=== PATIENT | male | born 1945 | race Two or more races ===

== ENCOUNTER 2018-10-26 08:17 | Day surgery (SDC) | payer OTHER ==
[2018-10-25 08:47] VITALS: BMI 33.9
[~2018-10-26 08:17] MED LIST: ACETAMINOPHEN 325 MG TABLET (FP) PO PRN; CIPROFLOXACIN HCL 0.3% OPHTH 2.5ML BOTTLE OP SCH; KETOROLAC TROMETHAMINE 0.5% EYE DROP 1 DROP DROPS OP SCH; PHENYLEPHRINE 2.5% OPHTH SOLN 15 ML BOTTLE OP SCH; TROPICAMIDE 1% OPHTH SOLN 15 ML BOTTLE OP SCH
[2018-10-26] MEDS ORDERED: CIPROFLOXACIN HCL 0.3% OPHTH 2.5ML BOTTLE ONE (09:01)
[2018-10-26] MEDS ORDERED: KETOROLAC TROMETHAMINE 0.5% EYE DROP 1 DROP DROPS ONE (09:01)
[2018-10-26] MEDS ORDERED: TROPICAMIDE 0.5% OPHTHALMIC SOLN 15 ML BOTTLE ONE (09:01)
[2018-10-26] MEDS ORDERED: PHENYLEPHRINE HCL 10% OPHTHALMIC SOLN 5 ML BOTTLE OS ONE (09:10)
[2018-10-26] MEDS ORDERED: CIPROFLOXACIN HCL 0.3% OPHTH 2.5ML BOTTLE OS ONE ×2 (09:10→09:15)
[2018-10-26] MEDS ORDERED: TROPICAMIDE 0.5% OPHTHALMIC SOLN 15 ML BOTTLE OS ONE ×3 (09:10→09:20)
[2018-10-26] MEDS ORDERED: PHENYLEPHRINE 2.5% OPHTH SOLN 15 ML BOTTLE OS ONE ×2 (09:15→09:20)
[2018-10-26] MEDS ORDERED: KETOROLAC TROMETHAMINE 0.5% EYE DROP 1 DROP DROPS OS ONE ×2 (09:15→09:20)
[2018-10-26] MEDS ORDERED: CIPROFLOXACIN 0.3% EYE DROPS 5 ML BOTTLE OS ONE (09:20)
--- NOTE | 2018-10-26 09:55 | HP ---
History & Physical Update - History History: No Change - Physical Physical: No Change - Assessment Assessment: No Change - Plan Plan: No Change (Reviewed Dr. Amezquita's H and P from 08/08/18 no changes)
--- NOTE | 2018-10-26 09:59 | HP ---
- Patient Scheduled date of Surgery: 10/26/18 Scheduled Surgical Procedure: Phacoemulsification and cataract extraction with PCIOL Affected Eye: Left Chief Complaint (Indication for surgery): Decreased vision affecting ADLs - Ocular History Other Eye History: Other (HTN retinopathy) Eye Medications: prolensa 0/1, vigamox 0/3 Previous Eye Surgery: none - Medical History Illnesses: Hypertension, Hypercholesterolemia, Diabetes Current Medications: Ambulatory Orders Aspirin [ASA -] 81 mg PO DAILY 10/25/18 Atorvastatin Ca [Lipitor] 40 mg PO HS 10/26/18 Metoprolol Succinate [Toprol Xl] 25 mg PO DAILY 10/26/18 Naproxen/Esomeprazole Mag [Vimovo Dr 500-20 mg Tablet] 1 each PO HS 10/26/18 Sitagliptin Phosphate [Januvia] 100 mg PO DAILY 10/26/18 Telmisartan [Micardis] 80 mg PO DAILY 10/26/18 Allergies/Adverse Reactions: Allergies Allergy/AdvReac Type Severity Reaction Status Date / Time No Known Allergies Allergy Verified 09/04/14 11:28 Ocular Examination - Best Corrected Visual Acuity Distance: Right eye: 20/30 Distance: Left eye: 20/40 - External/Slit Lamp Examination Abnormalities: decreased TBUT, Dermatochalasis - Intraocular Pressure Intraocular Pressure - Right eye: 14 Intraocular Pressure-Left eye: 14 - Lens Lens: 2-3+ NS - Vitreous/Retina Vitreous/Retina: c:d 0.15 m/v/p wnl - Special Examination M - Right eye: -1.00-0.50 x 090 M - Left eye: -0.75 K - Right eye: 43.25/44 x 165 K - Left eye: 43.25/43.75 x 012 AL - Right eye: 24.18 AL - Left eye: 24.37 IOL bag: +19.0 AUOOTO IOL sulcus: +18.0 MN60AC IOL AC: +15.5 MTA 4UO - Impression Impression: Cataract Left Eye - Plan Plan: Phacoemulsification and cataract extraction - IOL Left eye Post-hospital care will be provided in office on: 10/27/18
[2018-10-26] MEDS ORDERED: TETRACAINE 0.5% OPHTH SOLN 2 ML BOTTLE OS ONE (10:09)
[2018-10-26] MEDS ORDERED: MIDAZOLAM HCL 2 MG/2 ML SINGLE DOSE VIAL ONE (10:09)
[2018-10-26] MEDS ORDERED: POVIDONE-IODINE 5% OPHTHALMIC PREP 30 ML SOLUTION OS ONE (10:10)
[2018-10-26] MEDS ORDERED: BSS (NA/CA/MG/K) BALANCED SALT SOLUTION OPHTH SOLN 15 ML BOTTLE OS ONE (10:19)
[2018-10-26] MEDS ORDERED: LIDOCAINE HCL 1% PRESERVATIVE FREE - 30ML VIAL IO ONE (10:19)
[2018-10-26] MEDS ORDERED: CHONDROITIN SU A/HYALUR SOD 1 KIT IO ONE (10:19)
[2018-10-26] MEDS ORDERED: EPINEPHrine/PF 1 MG/1 ML (1:1,000) AMPULE SQ ONE (10:24)
[2018-10-26] MEDS ORDERED: TOBRAMYCIN/DEXAMETHASONE OPHTH. OINTMENT 1 TUBE OS ONE (10:39)
--- NOTE | 2018-10-26 10:45 | OP ---
Ophthalmology Operative Note Pre-Operative Diagnosis: Cataract Affected Eye: Left Operation: Phacoemulsification and cataract extraction with PCIOL Findings: NS cataract left eye Post-Operative Diagnosis: Same as Pre-op Fermentation Scientist: None Anesthesiologist: Chelsea Pittman MD Anesthesia: Topical Specimens Removed: none Drains & Tubes with Location: <1 cc Operative Report Dictated: Yes
[2018-10-26 12:02] VITALS: BP 153/75; PULSE 88; TEMP 98.3
--- NOTE | 2018-11-11 07:45 | OP ---
DATE OF OPERATION: DATE OF DICTATION: 11/10/2018 PREOPERATIVE DIAGNOSIS: Nuclear sclerotic cataract, left eye. POSTOPERATIVE DIAGNOSIS: Nuclear sclerotic cataract, left eye. PROCEDURE: Phacoemulsification and cataract extraction with insertion of posterior chamber intraocular lens, left eye. SURGEON: Winsome Pizarro MD [employer]IOR [employer]ESSION[employer] CONSULTANT: None. ANESTHESIA: Topical. ANESTHESIOLOGIST: ISMAEL Iraheta OPERATIVE PROCEDURE: The patient received tetracaine eyedrops and then was gently sedated and prepped and draped in the usual sterile fashion so as to expose only the left eye. Ophthalmic Betadine was instilled into the inferior fornix and the lashes were taped out of the surgical field. An eyelid speculum was placed into the left eye. A paracentesis was made in inferior temporal clear cornea at the limbus. Nonpreserved lidocaine 1%, 0.5 mL, was injected into the anterior chamber. Viscoelastic material was instilled into the anterior chamber via the paracentesis. A 2.4-mm keratome was then used to create the main incision in temporal clear cornea at the limbus. A continuous curvilinear capsulorrhexis was performed using a cystotome and Utrata forceps. Hydrodissection of the lens cortex was performed using BSS on a cannula until the nucleus was noted to be freely rotating. The phacoemulsification tip was then inserted via the main wound and used to sculpt 2 perpendicular grooves into the lens nucleus. The nucleus was cracked into 4 quadrants and each quadrant was lifted out of the capsule into the iris plane and individually phacoemulsified. The remaining cortical material was then aspirated using irrigation and aspiration port. The capsular bag was inflated using Provisc and a preloaded AcrySof lens model AU00T0, power 19.0 diopters, was injected into the capsular bag and centered using a Sinskey hook. The residual viscoelastic material was removed from the anterior chamber using irrigation and aspiration. The wound edges were hydrated using BSS. The wound was tested for leakage and was found to be watertight. TobraDex ointment was placed into the eye and the speculum was removed from the eye and a sterile dressing and shield were placed over the eye. The patient was transferred to the recovery room in stable condition and told to follow up in 1 day. WINSOME PIZARRO M.D. RENZO/[id number]
== END 2018-10-26 12:02 | disposition home or self-care (01) ==
LOC: JASU-SURG 08:17
PROVIDERS: ATTEND Ophthalmology
PROC: 08RK3JZ Replacement of Left Lens with Synthetic Substitute, Percutaneous Approach (ICD-10-PCS; principal; 2018-10-26 09:30)
DX: H26.9 Unspecified cataract (principal)
CPT/HCPCS: 82962

== ENCOUNTER 2019-05-24 07:00 | Day surgery (SDC) | payer OTHER | END 2019-05-24 10:30 | disposition home or self-care (01) | LOC: JASU-SURG 07:00 ==